=== PATIENT | male | born 1985 | race African-American/Black ===

== ENCOUNTER 2017-03-13 00:42 | Inpatient (IN) | payer SELFPAY ==
[~2017-03-13] VITALS: Ht 170.2 cm; Wt 57.9 kg
[2017-03-13 01:34] LABS: BASOPHILS # (AUTO) 0.04 K/uL (0.00-0.20); BASOPHILS % (AUTO) 0.4 % (0.0-2.0); EOSINOPHILS # (AUTO) 0.03 K/uL (0.00-0.70); EOSINOPHILS % (AUTO) 0.33 % (1.0-6.0); HEMATOCRIT 39.5 % (41-53); HEMOGLOBIN 13.3 g/dL (13.5-17.5); LYMPHOCYTES # (AUTO) 1.4 K/uL (1.0-4.8); LYMPHOCYTES % (AUTO) 14.7 % (22.0-44.0); MEAN CORPUSCULAR HEMOGLOBIN 30.2 pg (26.0-34.0); MEAN CORPUSCULAR HGB CONC 33.8 G/dL (31.0-37.0); MEAN CORPUSCULAR VOLUME 89 fL (80-100); MONOCYTES # (AUTO) 0.6 K/uL (0.1-1.0); MONOCYTES % (AUTO) 6.1 % (2.0-9.0); NEUTROPHILS # (AUTO) 7.5 K/uL (1.8-7.7); NEUTROPHILS % (AUTO) 78.5 % (40.0-70.0); PLATELET COUNT (AUTO) 234 K/uL (150-450); RED BLOOD CELL COUNT(AUTO) 4.41 MIL/uL (4.50-5.90); RED CELL DISTRIBUTION WIDTH 12.9 % (11.5-14.5); WHITE BLOOD COUNT (AUTO) 9.5 K/uL (4.5-11.0)
[2017-03-13 01:44] LABS: ANION GAP 8 mmol/L (8-16); CALCIUM, TOTAL 9.4 mg/dL (8.8-10.5); CARBON DIOXIDE 29 mmol/L (22-29); CHLORIDE 107 mmol/L (98-107); CREATININE 1.25 mg/dL (0.60-1.30); GLOMERULAR FILTR. RATE CALC 60 mL/min (>60); POTASSIUM 4.1 mmol/L (3.5-5.1); SODIUM SERUM 144 mmol/L (136-145); UREA NITROGEN, BLOOD 15 mg/dL (7-18)
[2017-03-13 01:51] LABS: ALANINE AMINOTRANSFERASE 31 U/L (12-78); ALBUMIN 3.9 g/dL (3.4-5.0); ASPARTATE AMINOTRANSFERASE 14 U/L (15-37); BILIRUBIN,TOTAL 0.3 mg/dL (0.1-1.0); TOTAL PROTEIN, SERUM 8.3 g/dL (6.4-8.2)
[2017-03-13] MEDS ORDERED: HALOPERIDOL LACTATE 5 MG/ML VIAL IM ONE (03:00)
[2017-03-13] MEDS ORDERED: DiphenhydrAMINE HCL 50 MG/ML VIAL IM ONE (03:00)
[2017-03-13] MEDS ORDERED: LORazepam 2 MG/ML VIAL IM ONE (03:00)
[2017-03-13] MEDS ORDERED: HALOPERIDOL 5 MG TABLET PO PRN (03:45)
[2017-03-13] MEDS ORDERED: ZOLPIDEM TARTRATE 10 MG TABLET PO PRN (03:45)
[2017-03-13] MEDS ORDERED: LORazepam 2 MG TABLET PO PRN (03:45)
[2017-03-13 07:59] LABS: CHOL/HDL RATIO 2.8 (4.2-7.3)
[2017-03-13 08:53] VITALS: BP 116/70
[2017-03-13] MEDS: RisperiDONE 0.5 MG TABLET PO SCH ×3 (09:00→21:00)
[2017-03-13 20:02] VITALS: BP 102/67
[2017-03-14] MEDS: RisperiDONE 0.5 MG TABLET PO SCH ×2 (09:00→21:29)
[2017-03-14 10:09] VITALS: BP 116/72
[2017-03-14 19:30] VITALS: BP 119/70
[2017-03-15] MEDS: RisperiDONE 0.5 MG TABLET PO SCH ×2 (09:28→20:33)
[2017-03-15 10:11] VITALS: BP 106/62
[2017-03-16] MEDS ORDERED: RISP.5 PO (08:54)
[2017-03-16] MEDS: RisperiDONE 0.5 MG TABLET PO SCH (09:04)
== END 2017-03-16 13:00 | disposition home or self-care (01) | DRG 885 ==
LOC: EDBD 00:44 → EMS 00:44 → 3EI 07:03
DX: F29 Unspecified psychosis not due to a substance or known physiological condition (principal); G93.40 Encephalopathy, unspecified; D64.9 Anemia, unspecified; F15.90 Other stimulant use, unspecified, uncomplicated; Z87.898 Personal history of other specified conditions
CPT/HCPCS: 51701; 96372; 99285; G0480; J1200; J1630; J2060